=== PATIENT | female | born 1945 | race American Indian/Alaskan Native ===

== ENCOUNTER 2016-09-26 13:28 | Emergency (ER) | payer MEDICARE, OTHER ==
[2016-09-26 13:28] VITALS: BMI 28.6
[2016-09-26 13:36] VITALS: RESP 16; TEMP 98.7
--- NOTE | 2016-09-26 14:40 | ED PDOC ---
Arrival/HPI - General Chief Complaint: Back Pain Time Seen by Provider: 09/26/16 14:10 Historian: Patient - History of Present Illness Narrative History of Present Illness (Text): 09/26/16 14:37 70-year-old female presents today with a 2 week history of right sided neck pain. Patient denies any recent trauma or injury. Patient states she woke up from sleep 2 weeks ago with pain to the right side of the neck. She describes the pain as an achy tightness. Patient states that she holds her head straight she has no pain. Patient states she only has pain when she turns her head side to side. Patient states the pain is greatest when she turns to the left. She denies numbness weakness or tingling in the extremities. Denies headaches or dizziness. No medications have been taken for pain at home. Patient denies fevers or chills. No other complaints Time/Duration: Other (2 weeks) Symptom Onset: Gradual Symptom Course: Unchanged Quality: Aching, Tightness Severity Level: 3 Past Medical History - Provider Review Nursing Documentation Reviewed: Yes - Travel History Have you recently traveled outside [place] w/in the past 3 mons?: No - Infectious Disease Hx of Infectious Diseases: None - Tetanus Immunization Tetanus Immunization: Unknown - Cardiac Hx Cardiac Disorders: Yes Hx Hypertension: Yes - Pulmonary Hx Respiratory Disorders: Yes Hx Asthma: Yes (BRONCHIAL ASTHMA) - Neurological Hx Neurological Disorder: No - HEENT Hx HEENT Disorder: Yes Hx Cataracts: Yes (CATARACT RIGHT EYE) - Renal Hx Renal Disorder: No - Endocrine/Metabolic Hx Endocrine Disorders: No - Hematological/Oncological Hx Blood Disorders: No - Integumentary Hx Dermatological Disorder: No - Musculoskeletal/Rheumatological Hx Musculoskeletal Disorders: Yes Hx Arthritis: Yes Hx Osteoarthritis: Yes - Gastrointestinal Hx Gastrointestinal Disorders: Yes Hx Gastroesophageal Reflux: Yes Hx Hemorrhoids: Yes - Genitourinary/Gynecological Hx Genitourinary Disorders: No - Psychiatric Hx Psychophysiologic Disorder: Yes (CLAUSTROPHOBIC) Hx Substance Use: No - Surgical History Hx Cholecystectomy: Yes Hx Hysterectomy: Yes Other/Comment: BILATERAL KNEE SURGERY, LT BREAST BIOPSY - Anesthesia Hx Anesthesia: Yes - Suicidal Assessment Feels Threatened In Home Enviroment: No Family/Social History - Physician Review Nursing Documentation Reviewed: Yes Family/Social History: Unknown Family HX Smoking Status: Never Smoked Hx Alcohol Use: No Hx Substance Use: No Allergies/Home Meds Allergies/Adverse Reactions: Allergies No Known Allergies Allergy (Verified 09/26/16 13:29) Home Medications: Home Meds Medication Instructions Recorded Confirmed Calcium Carbonate [Oyster Shell 500 mg PO DAILY 12/12/12 09/26/16 Calcium] Hydrochlorothiazide 25 mg PO DAILY 12/12/12 09/26/16 Omeprazole 20 mg PO DAILY 12/12/12 09/26/16 [id number] CD [Cardizem CD] 240 mg PO DAILY 12/12/12 09/26/16 Cholecalciferol (Vitamin D3) 1,000 unit PO DAILY 02/16/15 09/26/16 [Vitamin D3] Review of Systems - Review of Systems Constitutional: absent: Fatigue, Fevers Respiratory: absent: SOB, Cough Cardiovascular: absent: Chest Pain, Palpitations Gastrointestinal: absent: Abdominal Pain, Nausea, Vomiting Musculoskeletal: Neck Pain. absent: Back Pain Skin: absent: Rash, Pruritis Neurological: absent: Headache, Dizziness Physical Exam Vital Signs Reviewed: Yes Vital Signs Temp Pulse Resp BP Pulse Ox 09/26/16 13:32 98.7 F 86 16 146/79 97 Temperature: Afebrile Blood Pressure: Normal Pulse: Regular Respiratory Rate: Normal Appearance: Positive for: Well-Appearing, Non-Toxic, Comfortable Pain Distress: None Mental Status: Positive for: Alert and Oriented X 3 - Systems Exam Head: Present: Atraumatic Pupils: Present: PERRL Extroacular Muscles: Present: EOMI Conjunctiva: Present: Normal, Injected Ears: Present: Normal Mouth: Present: Moist Mucous Membranes Pharnyx: Present: Normal. No: ERYTHEMA, EXUDATE Nose (External): Present: Atraumatic Neck: Present: Normal Range of Motion, Paraspinal Tenderness (+ right sided paraspinal and trapezius tenderness; no edema, no erythema, no ecchymosis. ), Trachea Midline, Other (no pulsatile mass). No: Meningeal Signs, MIDLINE TENDERNESS, JVD, Lymphadenopathy, Bruit Respiratory/Chest: Present: Clear to Auscultation, Good Air Exchange. No: Respiratory Distress, Accessory Muscle Use Cardiovascular: Present: Regular Rate and Rhythm, Normal S1, S2. No: Murmurs Abdomen: No: Tenderness Upper Extremity: Present: Normal Inspection, Normal ROM Lower Extremity: Present: Normal Inspection Neurological: Present: GCS=15, CN II-XII Intact, Speech Normal, Motor Func Grossly Intact, Normal Sensory Function, Gait Normal Skin: Present: Warm, Dry, Normal Color. No: Rashes Psychiatric: Present: Alert, Oriented x 3 Medical Decision Making ED Course and Treatment: 09/26/16 14:40 Patient nontoxic well-appearing in no distress with stable vital signs. motrin, valium po Patient reassessment: Feeling better with medications, Muscle strength 5 out of 5 bilaterally. pt seen and evaluated by dr. LUCIANO will d/c home to f/u with PMD. I advised to followup with the pmd within the next 2 days. Return if symptoms worsen persist or new symptoms develop Patient verbalizes understanding of discharge instructions and need for immediate followup. all aspects of this case were discussed the attending of record. Impression: Neck pain Motrin every 6 hours as needed for pain Valium one tablet every 8 hours as needed for muscle spasms: May cause drowsiness Followup with primary care physician within the next 2 days Return if symptoms worsen persist or if new symptoms develop - Medication Orders Current Medication Orders: Discontinued Medications Diazepam (Valium) 2 mg PO ONCE ONE PRN Reason: Protocol Stop: 09/26/16 14:27 Last Admin: 09/26/16 14:56 Dose: 2 mg Ibuprofen (Motrin Tab) 600 mg PO STAT STA Stop: 09/26/16 14:27 Last Admin: 09/26/16 14:56 Dose: 600 mg Disposition/Present on Arrival - Present on Arrival Any Indicators Present on Arrival: No History of DVT/PE: No History of Uncontrolled Diabetes: No Urinary Catheter: No History of Decub. Ulcer: No History Surgical Site Infection Following: None - Disposition Have Diagnosis and Disposition been Completed?: Yes Diagnosis: Neck pain Disposition: HOME/ ROUTINE Disposition Time: 15:35 Patient Plan: Discharge Condition: GOOD Additional Instructions: Motrin every 6 hours as needed for pain Valium one tablet every 8 hours as needed for muscle spasms: May cause drowsiness Followup with primary care physician within the next 2 days Return if symptoms worsen persist or if new symptoms develop Prescriptions: diaZEpam [Valium] 2 mg PO Q8H PRN #6 tab PRN Reason: muscle spasms Ibuprofen [Motrin] 600 mg PO Q6H PRN #20 tab PRN Reason: pain/fever reduction Referrals: Cynthia Singletary MD [Primary Care Provider] - Follow up with primary Memo Lopez MD [Staff Provider] - Follow up with primary
[2016-09-26 16:17] VITALS: BP 139/74; PULSE 81; O2SAT 98
== END 2016-09-26 16:00 | disposition home or self-care (01) ==
LOC: ED 13:28
DX: M54.2 Cervicalgia (principal)

== ENCOUNTER 2016-10-10 12:53 | Observation (INO) | payer MEDICARE, OTHER ==
[2016-10-10 12:53] VITALS: BMI 28.6
[2016-10-10 13:20] VITALS: RESP 18; TEMP 98.4
[2016-10-10] MEDS ORDERED: Morphine 4 mg/ml ISec IVP STA (14:22)
[2016-10-10 15:40] LABS: ADD MANUAL DIFF? NO
[2016-10-10 15:50] LABS: BASO # 0.02 K/mm3 (0.0-2.0); BASO % 0.4 % (0.0-3.0); EOS # 0.1 (0.0-0.7); EOS % 1.8 % (1.5-5.0); GRAN # 3.43 (1.4-6.5); GRAN % 63.4 % (50.0-68.0); HEMATOCRIT 41.1 % (36.0-48.0); LYMPH # 1.5 (1.2-3.4); LYMPH % 27.7 % (22.0-35.0); MEAN CELL VOLUME 83.7 fL (80.0-105.0); MEAN CORPUSCULAR HEMOGLOBIN 27.5 pg (25.0-35.0); MEAN CORPUSCULAR HGB CONC 32.8 g/dl (31.0-37.0); MEAN PLATELET VOLUME 9.8 fl (7.0-11.0); MONO # 0.4 (0.1-0.6); MONO % 6.7 % (1.0-6.0); PLATELET COUNT 301 10^3/uL (120.0-450.0); RED CELL DISTRIBUTION WIDTH 14.1 % (11.5-14.5); WHITE BLOOD COUNT 5.4 10^3/ul (4.5-11.0)
[2016-10-10 15:53] VITALS: O2SAT 98
[2016-10-10 15:54] LABS: INR 1.06 (0.93-1.08)
[2016-10-10 15:55] LABS: ALB/GLOB RATIO 1.3 (1.1-1.8); ALKALINE PHOSPHATASE 92 U/L (38-133); ALT/SGPT 25 U/L (7-56); AST/SGOT 32 U/L (15-39); BILIRUBIN,TOTAL 0.8 mg/dL (0.2-1.3); BLOOD UREA NITROGEN 17 mg/dL (7-21); CALCIUM 10.1 mg/dL (8.4-10.5); CARBON DIOXIDE 31 mmol/L (21-33); CHLORIDE 101 mmol/L (98-107); GFR AFRICAN-AMERICAN > 60; GLUCOSE,RANDOM 103 mg/dL (70-110); POTASSIUM 3.9 mmol/L (3.6-5.0); SODIUM 141 mmol/L (132-148); TOTAL PROTEIN 8.4 g/dL (5.8-8.3)
--- NOTE | 2016-10-10 16:27 | ED PDOC ---
Arrival/HPI - General Historian: Patient - General Chief Complaint: Back Pain Time Seen by Provider: 10/10/16 13:36 - History of Present Illness Narrative History of Present Illness (Text): 10/10/16 13:36 A 71 year old female presents to the emergency department complaining of right neck pain. Patient notes she was in the emergency department on 09/26/16 for the same pain, for which she has been taking Motrin and Valium. Patient states there has been no improvement in pain and she is concerned because her sister from a brain aneurysm, so she wanted to come in and get evaluated again. Patient notes pain is worse with movement and palpation. She denies any headache , fever, nausea, vomiting, trauma, chest pain, upper extremity weakness/numbness , or any other complaints at this time. PMD: Dr. Singletary (Kimberly Ceballos PA-C) Past Medical History - Provider Review Nursing Documentation Reviewed: Yes - Infectious Disease Hx of Infectious Diseases: None - Tetanus Immunization Tetanus Immunization: Unknown - Cardiac Hx Cardiac Disorders: Yes Hx Hypertension: Yes - Pulmonary Hx Respiratory Disorders: Yes Hx Asthma: Yes (BRONCHIAL ASTHMA) - Neurological Hx Neurological Disorder: No - HEENT Hx HEENT Disorder: Yes Hx Cataracts: Yes (CATARACT RIGHT EYE) - Renal Hx Renal Disorder: No - Endocrine/Metabolic Hx Endocrine Disorders: No - Hematological/Oncological Hx Blood Disorders: No - Integumentary Hx Dermatological Disorder: No - Musculoskeletal/Rheumatological Hx Musculoskeletal Disorders: Yes Hx Arthritis: Yes Hx Osteoarthritis: Yes - Gastrointestinal Hx Gastrointestinal Disorders: Yes Hx Gastroesophageal Reflux: Yes Hx Hemorrhoids: Yes - Genitourinary/Gynecological Hx Genitourinary Disorders: No - Psychiatric Hx Psychophysiologic Disorder: Yes (CLAUSTROPHOBIC) Hx Substance Use: No - Surgical History Hx Cholecystectomy: Yes Hx Hysterectomy: Yes Other/Comment: BILATERAL KNEE SURGERY, LT BREAST BIOPSY - Anesthesia Hx Anesthesia: Yes - Suicidal Assessment Feels Threatened In Home Enviroment: No Family/Social History - Physician Review Nursing Documentation Reviewed: Yes Family/Social History: Other (sister of a brain aneurysm) Smoking Status: Never Smoked Hx Alcohol Use: No Hx Substance Use: No Allergies/Home Meds Allergies/Adverse Reactions: Allergies No Known Allergies Allergy (Verified 10/10/16 13:20) Home Medications: Home Meds Medication Instructions Recorded Confirmed Calcium Carbonate [Oyster Shell 500 mg PO DAILY 12/12/12 09/26/16 Calcium] Hydrochlorothiazide 25 mg PO DAILY 12/12/12 09/26/16 Omeprazole 20 mg PO DAILY 12/12/12 09/26/16 [id number] CD [Cardizem CD] 240 mg PO DAILY 12/12/12 09/26/16 Cholecalciferol (Vitamin D3) 1,000 unit PO DAILY 02/16/15 09/26/16 [Vitamin D3] Review of Systems - Physician Review All systems were reviewed & negative as marked: Yes - Review of Systems Constitutional: absent: Fevers Respiratory: absent: SOB Cardiovascular: absent: Chest Pain Gastrointestinal: absent: Abdominal Pain Musculoskeletal: Neck Pain Neurological: absent: Focal Weakness Physical Exam Vital Signs Reviewed: Yes Temperature: Afebrile Blood Pressure: Normal Pulse: Regular Respiratory Rate: Normal Appearance: Positive for: Well-Appearing, Non-Toxic, Comfortable Pain Distress: None Mental Status: Positive for: Alert and Oriented X 3 - Systems Exam Head: Present: Atraumatic, Normocephalic Pupils: Present: PERRL Extroacular Muscles: Present: EOMI Conjunctiva: Present: Normal Mouth: Present: Moist Mucous Membranes Neck: Present: Normal Range of Motion, Paraspinal Tenderness (right paracervical tenderness with palpation), Trachea Midline, Other ((+) pain elicited with movement of the neck to the contralateral side). No: Meningeal Signs, MIDLINE TENDERNESS, Lymphadenopathy Respiratory/Chest: Present: Clear to Auscultation, Good Air Exchange. No: Respiratory Distress, Accessory Muscle Use Cardiovascular: Present: Regular Rate and Rhythm, Normal S1, S2. No: Murmurs Abdomen: Present: Normal Bowel Sounds. No: Tenderness, Distention, Peritoneal Signs Back: Present: Normal Inspection Upper Extremity: Present: Normal Inspection. No: Cyanosis, Edema Lower Extremity: Present: Normal Inspection. No: Edema Neurological: Present: GCS=15, CN II-XII Intact, Speech Normal Skin: Present: Warm, Dry, Normal Color. No: Rashes Psychiatric: Present: Alert, Oriented x 3, Normal Insight, Normal Concentration Vital Signs Temp Pulse Resp BP Pulse Ox 10/10/16 17:00 69 18 128/68 98 10/10/16 16:28 75 18 131/69 98 10/10/16 15:53 79 18 133/71 98 10/10/16 13:15 98.4 F 88 18 135/79 97 Medical Decision Making - Lab Interpretations I have reviewed the lab results: Yes ED Course and Treatment: I was available for consultation during PA evaluation. The chart reviewed by me , and I agree with disposition. The documented history was done by the physician hearing screen coordinator. The documented physical exam was done by the physician hearing screen coordinator. The documented procedures were done by the physician hearing screen coordinator. (Kyle Agudelo) 10/10/16 13:36 Impression: A 71 year old female with right sided neck pain. Differential Diagnosis include but are not limited to: musculosketal pain, r/o aneurysm Plan: -- CT Angiography of the head and neck -- Labs -- Morphine and Zofran -- Patient placed in ED observation Prior Visits: Notes and results from previous visits were reviewed. The patient last presented to the emergency department on 09/26/16 for evaluation of right sided neck pain. (Kimberly Ceballos PA-C) - Medication Orders Current Medication Orders: Discontinued Medications Iohexol (Omnipaque 350 150 Ml) Confirm Administered Dose 150 ml .ROUTE .STK-MED ONE Stop: 10/10/16 16:36 Morphine Sulfate (Morphine) 2 mg IVP STAT STA Stop: 10/10/16 14:23 Last Admin: 10/10/16 15:34 Dose: 2 mg Re-Assess: TOMAS Pain Assessment Document 10/10/16 16:34 HI (Rec: 10/10/16 17:09 HI [id number]) Pain Reassessment Is this a pain reassessment? Yes Sleep Is patient sleeping during reassessment? No Presence of Pain Presence of Pain No Ondansetron HCl (Zofran Inj) 4 mg IVP STAT STA Stop: 10/10/16 14:23 Last Admin: 10/10/16 15:33 Dose: 4 mg ED OBSERVATION Date of observation admission: 10/10/16 Time of observation admission: 14:30 - Observation admission statement Patient is being placed in observation because:: Considering patient's family history of a brain aneurysm will order labs and CT and she the head and neck to rule out aneurysm. (Kimberly Ceballos PA-C) - Goals of Observation Goals of observation are:: To monitor patient's signs and symptoms. (Kimberly Ceballos PA-C.) - Progress Note Progress Note: 10/10/16 16:10 Lab results reviewed and are within normal limits. On reevaluation patient is resting comfortably in no acute distress. Patient reports no severe headache at this time, denies any upper extremity weakness or numbness. Physical exam is unchanged. Patient is awaiting CT angio head and neck. 10/10/16 18:00 CT angiography of the head and neck shows no aneurysm. CT results were discussed with the patient in great detail. Patient advised to continue current medication and to follow-up with her PMD without field. Based on history, exam and diagnostic results plan will be for outpatient follow -up with PMD. Patient states she fully agrees with and understands discharge instructions. States that she agrees with the plan and disposition. Verbalized and repeated discharge instructions and plan. I have given the patient opportunity to ask any additional questions. Follow up with primary care physician in 1-2 days without fail. Return to the emergency room at any time for any new or worsening symptoms. (Kimberly Ceballos PA-C) - PA / REEL CUTTER / Resident Statement MD/DO has reviewed & agrees with the documentation as recorded. - Scribe Statement The provider has reviewed the documentation as recorded by the Scribe - Scribe Statement Jarod Betts Provider Scribe Attestation: All medical record entries made by the Scribe were at my direction and personally dictated by me. I have reviewed the chart and agree that the record accurately reflects my personal performance of the history, physical exam, medical decision making, and the department course for this patient. I have also personally directed, reviewed, and agree with the discharge instructions and disposition. (Kimberly Ceballos PA-C) Disposition/Present on Arrival - Present on Arrival Any Indicators Present on Arrival: No History of DVT/PE: No History of Uncontrolled Diabetes: No Urinary Catheter: No History of Decub. Ulcer: No History Surgical Site Infection Following: None - Disposition Have Diagnosis and Disposition been Completed?: Yes Disposition Time: 14:30 (Pt placed in ED observation ) Patient Plan: Discharge - Disposition Diagnosis: Neck pain, Muscle spasm Disposition: HOME/ ROUTINE Patient Problems: Current Active Problems Problem Status Onset Muscle spasm Acute Neck pain Acute Condition: GOOD
[2016-10-10 17:26] VITALS: BP 128/68; PULSE 69
--- NOTE | 2016-10-11 08:45 | CT ---
PROCEDURE: CT Angiography of the neck with contrast HISTORY: R sided neck, r/o aneurysm BRAIN ANEURYSM COMPARISON: None available. TECHNIQUE: Contiguous axial images of the neck were obtained from the level of the skull-base to the superior mediastinum in the arteriographic phase of enhancement. Coronal and sagittal reformats or also generated. IV contrast dose: 100 mL Omnipaque 300 Radiation Dose - DLP: 320.50 mGy-cm This CT exam was performed using one or more of the following dose reduction techniques: Automated exposure control, adjustment of the mA and/or kV according to patient size, and/or use of iterative reconstruction technique. FINDINGS: The visualized aorta is normal in appearance. There is a 3 vessel aortic arch. The right vertebral artery has a more proximal origin from the subclavian artery just distal to the bifurcation of the innominate artery. RIGHT CAROTID ARTERIES: Common Carotid Artery: Normal. Carotid Bifurcation: Normal. Internal Carotid Artery:Normal. External Carotid Artery (proximal branches): Normal. LEFT CAROTID ARTERIES: Common Carotid Artery: Normal. Carotid Bifurcation: Normal. Internal Carotid Artery:Normal. External Carotid Artery (proximal branches): Normal. VERTEBRAL ARTERIES: Right Vertebral Artery: Normal. Left Vertebral Artery: Normal. OTHER FINDINGS: None. IMPRESSION: Normal CT Angiography of the neck. A preliminary report was provided by [employer] services.
== END 2016-10-10 19:04 | disposition home or self-care (01) ==
LOC: ED 12:53 → EROBSV 14:30
PROVIDERS: ADMIT Emergency Medicine; ATTEND Emergency Medicine
DX: M54.2 Cervicalgia (principal); M62.838 Other muscle spasm
CPT/HCPCS: 70498; 80053; 85025; 85610; 85730; 96374; 96375; 99283; G0378; J2270; J2405; Q9967

== ENCOUNTER 2017-06-13 14:37 | Emergency (ER) | payer MEDICARE, OTHER ==
[2017-06-13 14:44] VITALS: BMI 30.1
[2017-06-13 14:57] VITALS: RESP 18; TEMP 98.8; O2SAT 96
[2017-06-13] MEDS ORDERED: Albuterol-Ipratrop 3 mg / 0.5 (3 ml) UD IH STA ×2 (14:59→15:00)
--- NOTE | 2017-06-13 15:03 | ED PDOC ---
Arrival/HPI - General Chief Complaint: Cough, Cold, Congestion Time Seen by Provider: 06/13/17 14:44 - History of Present Illness Narrative History of Present Illness (Text): 06/13/17 14:59 Pt is a 71 yo F with PMH HTN, GERD, asthma presents to ED due to a 4 day history of cold-like symptoms. Pt states symptoms started with dry cough, but now is productive. Due to frequency of coughing, patient states that she has some midsternal soreness. Pt also complains of sinus congestion, but denies sinus pain. Pt complains of sore throat, headache, and alternating fever and chills. Pt admits to decreased appetite since becoming ill. Pt denied ear pain, pharyngeal exudates, purulent nasal drainage, SOB, n/v/d, abdominal pain, dizziness, or dysuria. Pt contacted her PMD, who instructed her to be evaluated by ED. Pt states that her was recently sick as well. PMD: [facility] Past Medical History - Infectious Disease Hx of Infectious Diseases: None - Tetanus Immunization Tetanus Immunization: Unknown - Cardiac Hx Cardiac Disorders: Yes Hx Hypertension: Yes - Pulmonary Hx Respiratory Disorders: Yes Hx Asthma: Yes (BRONCHIAL ASTHMA) - Neurological Hx Neurological Disorder: No - HEENT Hx HEENT Disorder: Yes Hx Cataracts: Yes (CATARACT RIGHT EYE) - Renal Hx Renal Disorder: No - Endocrine/Metabolic Hx Endocrine Disorders: No - Hematological/Oncological Hx Blood Disorders: No - Integumentary Hx Dermatological Disorder: No - Musculoskeletal/Rheumatological Hx Musculoskeletal Disorders: Yes Hx Arthritis: Yes Hx Osteoarthritis: Yes - Gastrointestinal Hx Gastrointestinal Disorders: Yes Hx Gastroesophageal Reflux: Yes Hx Hemorrhoids: Yes - Genitourinary/Gynecological Hx Genitourinary Disorders: No - Psychiatric Hx Psychophysiologic Disorder: Yes (CLAUSTROPHOBIC) Hx Substance Use: No - Surgical History Hx Cholecystectomy: Yes Hx Hysterectomy: Yes Other/Comment: BILATERAL KNEE SURGERY, LT BREAST BIOPSY - Anesthesia Hx Anesthesia: Yes - Suicidal Assessment Feels Threatened In Home Enviroment: No Family/Social History Family/Social History: Unknown Family HX Smoking Status: Never Smoked Hx Alcohol Use: No Hx Substance Use: No Allergies/Home Meds Allergies/Adverse Reactions: Allergies No Known Allergies Allergy (Verified 10/10/16 13:20) Home Medications: Home Meds Medication Instructions Recorded Confirmed Calcium Carbonate [Oyster Shell 500 mg PO DAILY 12/12/12 06/13/17 Calcium] Hydrochlorothiazide 25 mg PO DAILY 12/12/12 06/13/17 Omeprazole 20 mg PO DAILY 12/12/12 06/13/17 diltiaZEM CD [Cardizem CD] 240 mg PO DAILY 12/12/12 06/13/17 Cholecalciferol (Vitamin D3) 1,000 unit PO DAILY 02/16/15 06/13/17 [Vitamin D3] Review of Systems - Review of Systems Constitutional: Fevers Eyes: Normal ENT: Sore Throat, Rhinorrhea, Sinus Congestion Respiratory: Cough (productive (yellow sputum)) Cardiovascular: Other (chest soreness from cough) Gastrointestinal: Normal Genitourinary Female: Normal Musculoskeletal: Normal Skin: Normal Neurological: Normal Endocrine: Normal Physical Exam Vital Signs Temp Pulse Resp BP Pulse Ox 06/13/17 14:38 98.8 F 91 H 18 150/69 96 Temperature: Afebrile Blood Pressure: Normal Pulse: Regular Respiratory Rate: Normal Appearance: Positive for: Ill-Appearing Pain Distress: None Mental Status: Positive for: Alert and Oriented X 3 - Systems Exam Head: Present: Atraumatic, Normocephalic Extroacular Muscles: Present: EOMI Conjunctiva: Present: Normal Mouth: Present: Moist Mucous Membranes Pharnyx: No: ERYTHEMA, EXUDATE, TONSILS ENLARGED, Uvular Deviation, Muffled/ Hoarse Voice Nose (Internal): Present: Clear Mucous, Rhinorrhea. No: Engorged, Edematous, Purulent Mucous, Septal Deviation Neck: Present: Normal Range of Motion. No: Paraspinal Tenderness, Lymphadenopathy Respiratory/Chest: Present: Clear to Auscultation, Decreased Breath Sounds. No : Wheezes, Rales, Rhonchi Cardiovascular: Present: Regular Rate and Rhythm, Normal S1, S2. No: Murmurs, Rub, Gallop Abdomen: Present: Normal Bowel Sounds. No: Tenderness, Distention, Peritoneal Signs Upper Extremity: Present: Normal Inspection Lower Extremity: Present: Normal Inspection Neurological: Present: GCS=15 Skin: Present: Warm, Dry, Normal Color Psychiatric: Present: Alert, Oriented x 3 Medical Decision Making ED Course and Treatment: 06/13/17 15:05 Assessment: 71 yo F with PMH HTN, GERD, arthritis, asthma presents to ED due 4 day history for cough, cold, and congestion. Plan: - CBC - CMP - Cardiac enzymes - CXR - Duoneb - Solumedrol - EKG - Flu swab - UA 06/13/17 15:49 EKG showed NSR. No changes from past EKG. Chest X-ray showed no active disease. Labs unremarkable. Troponin negative. Influenza A/B negative. Stress test 2 years ago was normal. - Lab Interpretations Lab Results: 06/13/17 15:25 06/13/17 15:25 Lab Results 06/13/17 15:25: Influenza Typ A,B (EIA) Negative for flu a/b 06/13/17 15:25: Sodium 139, Potassium 3.6, Chloride 98, Carbon Dioxide 29, Anion Gap 16, BUN 15, Creatinine 0.9, Est GFR ( Amer) > 60, Est GFR (Non- Af Amer) > 60, Random Glucose 91, Calcium 9.9, Magnesium 2.1, Total Bilirubin 0.3, AST 62 H D, ALT 48, Alkaline Phosphatase 104, Lactate Dehydrogenase 714 H, Total Creatine Kinase 144, Troponin I < 0.01, Total Protein 7.6, Albumin 4.6, Globulin 3.1, Albumin/Globulin Ratio 1.5 06/13/17 15:25: Urine Color Yellow, Urine Appearance Clear, Urine pH 6.0, Ur Specific [place] 1.025, Urine Protein Negative, Urine Glucose (UA) Negative, Urine Ketones Negative, Urine Blood Trace-intact H, Urine Nitrate Negative, Urine Bilirubin Negative, Urine Urobilinogen 0.2, Ur Leukocyte Esterase Negative , Urine RBC Pending, Urine WBC Pending 06/13/17 15:25: PT 13.6 H, INR 1.19 H, APTT 29.5 06/13/17 15:25: WBC 4.3 L D, RBC 4.82, Hgb 12.9, Hct 40.8, MCV 84.6, MCH 26.8, MCHC 31.6, RDW 14.3, Plt Count 217, MPV 10.2, Gran % 62.2, Lymph % (Auto) 26.2, [place] % (Auto) 10.9 H, Eos % (Auto) 0.2 L, Baso % (Auto) 0.5, Gran # 2.69, Lymph # (Auto) 1.1 L, [place] # (Auto) 0.5, Eos # (Auto) 0.0, Baso # (Auto) 0.02 - RAD Interpretation Radiology Orders: 06/13/17 14:59 CHEST PORTABLE [RAD] Stat - Medication Orders Current Medication Orders: Discontinued Medications Albuterol/Ipratropium (Duoneb 3 Mg/0.5 Mg (3 Ml) Ud) 3 ml IH STAT STA Stop: 06/13/17 15:00 Last Admin: 06/13/17 15:15 Dose: 3 ml Albuterol/Ipratropium (Duoneb 3 Mg/0.5 Mg (3 Ml) Ud) 3 ml IH STAT STA Stop: 06/13/17 15:01 Last Admin: 06/13/17 15:30 Dose: 3 ml Methylprednisolone (Solu-Medrol) 125 mg IVP STAT STA Stop: 06/13/17 15:00 Last Admin: 06/13/17 15:20 Dose: 125 mg IVP Administration Document 06/13/17 15:20 (Rec: 06/13/17 15:29 [facility][id number]) Charges for Administration # of IVP Administrations 1 Disposition/Present on Arrival - Present on Arrival Any Indicators Present on Arrival: No History of DVT/PE: No History of Uncontrolled Diabetes: No Urinary Catheter: No History Surgical Site Infection Following: None - Disposition Have Diagnosis and Disposition been Completed?: Yes Diagnosis: Upper respiratory infection, Flu Disposition: HOME/ ROUTINE Disposition Time: 16:17 Condition: STABLE Discharge Instructions (ExitCare): Upper Respiratory Infection (ED), Influenza (ED) Additional Instructions: 1. Complete medications as prescribed. 2. Resume home medications as prescribed 3. May use OTC ibuprofen for pain. 4. Follow up with PMD within 1 week. 5. Return to Emergency department if symptoms worsen. Prescriptions: Benzonatate [Tessalon Perles] 200 mg PO Q8H PRN #30 sgl PRN Reason: Cough Oseltamivir Phosphate [Tamiflu] 75 mg PO BID #10 capsule Prednisone 50 mg PO DAILY #5 tablet Referrals: Cynthia Singletary MD [Primary Care Provider] - Follow up with primary Forms: [employer] (Portuguese)
--- NOTE | 2017-06-13 15:26 | RAD ---
HISTORY: cp COMPARISON: 05/13/2015 FINDINGS: LUNGS: No active pulmonary disease. PLEURA: No significant pleural effusion identified, no pneumothorax apparent. CARDIOVASCULAR: Normal. OSSEOUS STRUCTURES: No significant abnormalities. VISUALIZED UPPER ABDOMEN: Normal. OTHER FINDINGS: None. IMPRESSION: No active disease.
[2017-06-13 15:45] LABS: BASO # 0.02 K/mm3 (0.0-2.0); BASO % 0.5 % (0.0-3.0); EOS % 0.2 % (1.5-5.0); GRAN # 2.69 (1.4-6.5); GRAN % 62.2 % (50.0-68.0); HEMOGLOBIN 12.9 g/dL (12.0-16.0); LYMPH # 1.1 (1.2-3.4); LYMPH % 26.2 % (22.0-35.0); MEAN CELL VOLUME 84.6 fl (80.0-105.0); MEAN CORPUSCULAR HEMOGLOBIN 26.8 pg (25.0-35.0); MEAN CORPUSCULAR HGB CONC 31.6 g/dl (31.0-37.0); MEAN PLATELET VOLUME 10.2 fl (7.0-11.0); MONO # 0.5 (0.1-0.6); MONO % 10.9 % (1.0-6.0); RBC 4.82 10^6/uL (3.5-6.1); RED CELL DISTRIBUTION WIDTH 14.3 % (11.5-14.5); WHITE BLOOD COUNT 4.3 10^3/ul (4.5-11.0)
[2017-06-13 16:01] LABS: URINE BILIRUBIN NEGATIVE (NEGATIVE); URINE BLOOD TRACE-INTACT (NEGATIVE); URINE GLUCOSE (UA) NEGATIVE (NEGATIVE); URINE LEUKOCYTE ESTERASE NEGATIVE Leu/uL (NEGATIVE); URINE NITRATE NEGATIVE (NEGATIVE); URINE PROTEIN NEGATIVE mg/dL (<30 mg/dL); URINE UROBILINOGEN 0.2 E.U./dL (<1 E.U./dL)
[2017-06-13 16:03] LABS: ALB/GLOB RATIO 1.5 (1.1-1.8); ALBUMIN 4.6 g/dL (3.0-4.8); ALT/SGPT 48 U/L (7-56); AST/SGOT 62 U/L (14-36); BLOOD UREA NITROGEN 15 mg/dL (7-21); CALCIUM 9.9 mg/dL (8.4-10.5); GFR AFRICAN-AMERICAN > 60; GFR NON-AFRICAN AMERICAN > 60; MAGNESIUM 2.1 mg/dL (1.7-2.2)
[2017-06-13 16:05] LABS: URINE APPEARANCE CLEAR (CLEAR); URINE COLOR YELLOW (YELLOW)
[2017-06-13 16:08] LABS: INR 1.19 (0.93-1.08); PROTHROMBIN TIME 13.6 SECONDS (9.4-12.5)
[2017-06-13 16:09] LABS: PARTIAL THROMBOPLASTIN TIME 29.5 Seconds (25.1-36.5)
[2017-06-13 16:12] LABS: TROPONIN I < 0.01 ng/mL
[2017-06-13 16:21] LABS: URINE RBC 0 - 2 /hpf (0-2); URINE WBC NEGATIVE /hpf (0-6)
[2017-06-13 16:31] VITALS: BP 122/64; PULSE 86
--- NOTE | 2017-06-14 08:37 | CARD ---
APPROVED REPORT EKG Measurement Heart [id number] <Conclusion> Normal sinus rhythm Mild NSSTW changes
== END 2017-06-13 16:31 | disposition home or self-care (01) ==
LOC: ED 14:37
DX: J11.1 Influenza due to unidentified influenza virus with other respiratory manifestations (principal); I10 Essential (primary) hypertension
CPT/HCPCS: 71045; 80053; 81001; 82550; 83615; 83735; 84484; 85025; 85610; 85730; 87804; 93005; 96374; 99283; J2930

== ENCOUNTER 2018-03-23 12:10 | Emergency (ER) | payer MEDICARE, OTHER ==
[2018-03-23 12:10] VITALS: BMI 30.1
[2018-03-23 12:25] VITALS: RESP 18; TEMP 98.3
[2018-03-23] MEDS ORDERED: Lidocaine 5% Patch TD STA (12:32)
--- NOTE | 2018-03-23 12:52 | ED PDOC ---
Arrival/HPI - General Chief Complaint: Back Pain Time Seen by Provider: 03/23/18 12:11 Historian: Patient - History of Present Illness Narrative History of Present Illness (Text): 03/23/18 12:32 A 72 year old female, whose past medical history includes gastric reflux, gastroenteritis, hypertension, GERD, and asthma, presents to the emergency department complaining of right leg pain x 1 week. Patient reports experiencing associated lower back pain and it radiates down the right leg. She has taken naproxen 2 days ago for the pain to no relief. Patient notes she has not done anything significant to cause lower back pain and denies taking any medication today. Patient denies any fever, chills, shortness of breath, chest pain, diarrhea, nausea, vomiting, urinary symptoms, neck pain, headache, dizziness, or any other complaints. No numbness. No weakness. No incontinence. PMD: Dr. Singletary Time/Duration: Other (a few days) Symptom Onset: Gradual Symptom Course: Unchanged Activities at Onset: Light Context: Home Past Medical History - Provider Review Nursing Documentation Reviewed: Yes - Infectious Disease Hx of Infectious Diseases: None - Tetanus Immunization Tetanus Immunization: Unknown - Cardiac Hx Cardiac Disorders: Yes Hx Hypertension: Yes - Pulmonary Hx Respiratory Disorders: Yes Hx Asthma: Yes (BRONCHIAL ASTHMA) - Neurological Hx Neurological Disorder: No - HEENT Hx HEENT Disorder: Yes Hx Cataracts: Yes (CATARACT RIGHT EYE) - Renal Hx Renal Disorder: No - Endocrine/Metabolic Hx Endocrine Disorders: No - Hematological/Oncological Hx Blood Disorders: No - Integumentary Hx Dermatological Disorder: No - Musculoskeletal/Rheumatological Hx Musculoskeletal Disorders: Yes Hx Arthritis: Yes Hx Osteoarthritis: Yes - Gastrointestinal Hx Gastrointestinal Disorders: Yes Hx Gastroesophageal Reflux: Yes Hx Hemorrhoids: Yes - Genitourinary/Gynecological Hx Genitourinary Disorders: No - Psychiatric Hx Psychophysiologic Disorder: Yes (CLAUSTROPHOBIC) Hx Substance Use: No - Surgical History Hx Cholecystectomy: Yes Hx Hysterectomy: Yes Other/Comment: BILATERAL KNEE SURGERY, LT BREAST BIOPSY - Anesthesia Hx Anesthesia: Yes - Suicidal Assessment Feels Threatened In Home Enviroment: No Family/Social History - Physician Review Nursing Documentation Reviewed: Yes Family/Social History: No Known Family HX Smoking Status: Never Smoked Hx Alcohol Use: Yes Frequency of alcohol use: Socially Hx Substance Use: No Allergies/Home Meds Allergies/Adverse Reactions: Allergies No Known Allergies Allergy (Verified 03/23/18 12:25) Home Medications: Home Meds Medication Instructions Recorded Confirmed Calcium Carbonate [Oyster Shell 500 mg PO DAILY 12/12/12 03/23/18 Calcium] diltiaZEM CD [Cardizem CD] 240 mg PO DAILY 12/12/12 03/23/18 Cholecalciferol (Vitamin D3) 1,000 unit PO DAILY 02/16/15 03/23/18 [Vitamin D3] Aspirin [Aspirin Chewable] 81 mg PO DAILY 03/23/18 03/23/18 Review of Systems - Physician Review All systems were reviewed & negative as marked: Yes - Review of Systems Constitutional: absent: Fevers, Night Sweats Respiratory: absent: SOB Gastrointestinal: absent: Diarrhea, Nausea, Vomiting Genitourinary Female: absent: Urine Output Changes Musculoskeletal: Back Pain (+lower back pain), Other (+right leg pain). absent: Neck Pain Neurological: absent: Headache, Dizziness Physical Exam Vital Signs Reviewed: Yes Vital Signs Temp Pulse Resp BP Pulse Ox 03/23/18 12:23 98.3 F 72 18 151/90 H 99 Temperature: Afebrile Blood Pressure: Hypertensive Pulse: Regular Respiratory Rate: Normal Appearance: Positive for: Well-Appearing, Non-Toxic Pain Distress: None Mental Status: Positive for: Alert and Oriented X 3 - Systems Exam Head: Present: Atraumatic, Normocephalic Pupils: Present: PERRL Extroacular Muscles: Present: EOMI Conjunctiva: Present: Normal Back: Present: Other (+right buttock tenderness) Lower Extremity: Present: Tenderness (+tenderness to lateral right leg and thigh). No: CALF TENDERNESS, Payton's Sign, Swelling Neurological: Present: GCS=15, CN II-XII Intact, Speech Normal Skin: Present: Warm Psychiatric: Present: Alert, Oriented x 3, Normal Insight, Normal Concentration Medical Decision Making ED Course and Treatment: 03/23/18 12:37 Impression: 72 year old female presenting to the emergency room for right leg pain. Differential Diagnosis included but are not limited to: Sciatica vs Herniated Disc Plan: -- Flexiril -- Toradol -- Lidoderm -- Reassess and disposition Prior Visits: Notes and results from previous visits were reviewed. Progress Notes: 03/23/18 13:39 Patient is feeling much better. She is able to walk without assistance. She will be discharged on Motrin, Flexeril and Lidoderm patch. She was advised to follow up with her PMD and to return to the ED if she develops numbness, weakness or any other concern. - Medication Orders Current Medication Orders: Discontinued Medications Cyclobenzaprine HCl (Flexeril) 5 mg PO STAT STA Stop: 03/23/18 12:33 Ketorolac Tromethamine (Toradol) 30 mg IM STAT STA Stop: 03/23/18 12:34 Lidocaine (Lidoderm) 1 ea TD STAT STA Stop: 03/23/18 12:33 - Scribe Statement The provider has reviewed the documentation as recorded by the Vaishali Cee All medical record entries made by the Scribe were at my direction and personally dictated by me. I have reviewed the chart and agree that the record accurately reflects my personal performance of the history, physical exam, me dical decision making, and the department course for this patient. I have also personally directed, reviewed, and agree with the discharge instructions and disposition. Disposition/Present on Arrival - Present on Arrival Any Indicators Present on Arrival: No History of DVT/PE: No History of Uncontrolled Diabetes: No Urinary Catheter: No History of Decub. Ulcer: No History Surgical Site Infection Following: None - Disposition Have Diagnosis and Disposition been Completed?: Yes Diagnosis: Sciatica Disposition: HOME/ ROUTINE Disposition Time: 13:28 Patient Plan: Discharge Patient Problems: Current Active Problems Problem Status Onset Sciatica Acute Condition: IMPROVED Discharge Instructions (ExitCare): Sciatica (DC) Additional Instructions: SUNIL SINGLETARY, thank you for letting us take care of you today. Your provider was Waqar Lopes DO and you were treated for Right Sciatica. The emergency medical care you received today was directed at your acute symptoms. If you were prescribed any medication, please fill it and take as directed. It may take several days for your symptoms to resolve. Return to the Emergency Department if your symptoms worsen, do not improve, or if you have any other problems. Please contact your doctor or call one of the physicians/clinics you have been referred to that are listed on the Patient Visit Information form that is included in your discharge packet. Bring any paperwork you were given at discharge with you along with any medications you are taking to your follow up visit. Our treatment cannot replace ongoing medical care by a primary care provider outside of the emergency department. Thank you for allowing the [facility] team to be part of your care today. If you had an X-Ray or CT scan: A Radiologist will review the ED reading if any change in treatment is needed we will contact you. If you had a blood, urine, or wound culture: It will take several days for the results, if any change in treatment is needed we will contact you. If you had an STI test: It will take 48 hours for the results. Please call after 1 week if you have not heard back. Prescriptions: Cyclobenzaprine [Flexeril] 5 mg PO TID PRN #20 tab PRN Reason: Muscle Spasm Ibuprofen [Motrin] 600 mg PO Q6 PRN #30 tab PRN Reason: Pain, Moderate (4-7) Lidocaine 5% [Lidoderm] 1 ea TD DAILY PRN #4 patch PRN Reason: Pain, Moderate (4-7) Referrals: Cynthia Singletary MD [Medical Doctor] - Follow up with primary Forms: [employer] (Romansh), WORK NOTE
[2018-03-23 13:38] VITALS: BP 132/79; PULSE 78; O2SAT 98
== END 2018-03-23 13:36 | disposition home or self-care (01) ==
LOC: ED 12:10
DX: M54.30 Sciatica, unspecified side (principal)
CPT/HCPCS: 96372; 99283; J1885